=== PATIENT | male | born 1970 | race Caucasian/White ===

== ENCOUNTER 2019-07-29 16:53 | Inpatient (IN) | payer OTHER ==
[2019-07-29 21:22] VITALS: BMI 21.5
--- NOTE | 2019-07-29 22:25 | HP ---
"CIWA Score Nausea/Vomitin Muscle Tremors: 6 (mod Tremors hands and body) Anxiety: 1-Mildly Anxious Agitation: 1-Slight > Activity Paroxysmal Sweats: 3 (Increased facial moisture) Orientation: 0-Oriented Tacttile Disturbances: 0-None Auditory Disturbances: 0-None Visual Disturbances: 0-None Headache: 2-Mild CIWA-Ar Total Score: 16 - Admission Criteria OASAS Guidelines: Admission for Medically Managed Detox: Requires at least one of the followin. CIWA greater than 12 2. Seizures within the past 24 hours 3. Delirium tremens within the past 24 hours 4. Hallucinations within the past 24 hours 5. Acute intervention needed for co occurring medical disorder 6. Acute intervention needed for co occurring psychiatric disorder 7. Severe withdrawal that cannot be handled at a lower level of care (continued vomiting, continued diarrhea, abnormal vital signs) requiring intravenous medication and/or fluids 8. Patient presents the following: CIWA greater than 12 Admission Criteria Met: Admission criteria met Admission ROS [facility] Chief Complaint: Here for detox Allergies/Adverse Reactions: Allergies Allergy/AdvReac Type Severity Reaction Status Date / Time sulfamethoxazole Allergy Mild Hives Verified 07/29/19 21:09 [From Bactrim] zidovudine Allergy Mild Hives Verified 07/29/19 21:06 efavirenz [From Atripla] Allergy Hives Verified 07/29/19 21:11 emtricitabine [From Atripla] Allergy Hives Verified 07/29/19 21:11 tenofovir [From Atripla] Allergy Hives Verified 07/29/19 21:11 History of Present Illness: 49 yo presents w/ alcohol withdrawal symptoms seeking detox. Utox: + HEMA/FEN/MOP/MTD WALE: 0.0 Alcohol use began at age 12. Drinks 2 gallons/day. Last drink this am. Heroin use began at age 14. Uses approx 10 bags IV daily, despite being on MMTP. Currently on Jim Mancera MMTP x 3-4 months. Methadone dose is 70 mg PO Daily. LDM today. Cocaine use began at age 14. Currently injects. Nicotine use began at age 11. Smokes 1-2 pks/day. Hx: OD - last 3 OD's in 2018 Denies seizures or blackouts. PMHx: HIV +; Cough x 2 days MHHx: Denies depression at this time. Denies thoughts of harming self or others. SHx: Domiciled. Unemployed. Denies legal problems. Search Terms: Last Arthur, 1970 Search Date: 07/29/2019 10:12:54 PM The Drug Utilization Report below displays all of the controlled substance prescriptions, if any, that your patient has filled in the last twelve months. The information displayed on this report is compiled from pharmacy submissions to the Department, and accurately reflects the information as submitted by the pharmacies. This report was requested by: Bethany Catherine | Reference #: [id number] There are no results for the search terms that you entered. Exam Limitations: No Limitations - Ebola screening Have you traveled outside of the country in the last 21 days: No (N) Have you had contact with anyone from an Ebola affected area: No Have you been sick,other than usual withdrawal symptoms: Yes (Cough x 2 days ) Do you have a fever: No - Review of Systems Constitutional: Chills, Changes in sleep (Difficulty staying asleep), Unintentional Wgt. Loss EENT: reports: Blurred Vision, Nose Congestion Respiratory: reports: Cough (x 2 days) Cardiac: reports: No Symptoms Reported GI: reports: Blood Streaked Bowels (Occ - has hemorrhoids), Nausea : reports: Frequency (2-3 x/night urination. No blood/no burning) Musculoskeletal: reports: No Symptoms Reported Integumentary: reports: No Symptoms Reported Neuro: reports: Headache (Frontal headache - mild), Tremors Endocrine: reports: No Symptoms Reported Hematology: reports: Anemia (HIV+) Psychiatric: reports: Orientated x3, Agitated, Anxious Patient History - PPD History Previous Implant?: Yes Documented Results: Negative w/o proof Implanted On Prior [facility] Admission?: No PPD to be Administered?: Yes - Smoking Cessation Smoking history: Current every day smoker Have you smoked in the past 12 months: Yes Aproximately how many cigarettes per day: 30 Hx Chewing Tobacco Use: No Initiated information on smoking cessation: Yes 'Breaking Loose' booklet given: 07/29/19 - Substance & Tx. History Hx Alcohol Use: Yes Hx Substance Use: Yes Substance Use Type: Alcohol, Cocaine, Heroin, Opiates Hx Substance Use Treatment: Yes (detox; Current MMTP) - Substances abused Heroin Substance route: Injection Frequency: Daily Amount used: 12 bags Age of first use: 14 Date of last use: 07/28/19 Alcohol Substance route: Oral Frequency: Daily Amount used: 2 liters of vodka Age of first use: 12 Date of last use: 07/29/19 Cocaine Substance route: Injection Frequency: 3-6 times per week Amount used: $300 Age of first use: 14 Date of last use: 07/29/19 Admission Physical Exam [facility] - Vital Signs Vital Signs: Vital Signs - 24 hr 07/29/19 21:14 Temperature 98.5 F Pulse Rate 62 Respiratory 16 Rate Blood Pressure 103/63 - Physical General Appearance: Yes: Moderate Distress, Thin, Tremorous, Sweating ( Increased facial moisture), Anxious HEENTM: Yes: EOMI, Hearing grossly Normal, Normal Voice, JENNIFER, Pharynx Normal, Nasal Congestion Respiratory: Yes: Lungs Clear (Pulse Ox = 97 %), Wheezing (Expiratory. 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, Fully Oriented, Alert, Motor Strength 5/5, Normal Response Integumentary: Yes: Normal Color, Warm, Diaphoresis (Increased facial moisture) , Track Mcconnell (Old and new track mcconnell (R) arm) Lymphatic: Yes: Within Normal Limits - Diagnostic (1) Alcohol dependence with withdrawal, uncomplicated Current Visit: Yes Status: Acute (2) Opioid use disorder Current Visit: Yes Status: Chronic Comment: Continues to use despite being on methadone maintenance (3) Opioid dependence on agonist therapy Current Visit: Yes Status: Chronic (4) History of HIV infection Current Visit: Yes Status: Chronic Comment: Not on meds (5) Track mcconnell due to intravenous drug abuse Current Visit: Yes Status: Chronic (6) Cough Current Visit: Yes Status: Acute Comment: Quiet, non-productive (7) Wheeze Current Visit: Yes Status: Acute Comment: Expiratory w/ dyspnea Cleared for Admission [facility] - Detox or Rehab [facility] Level of Care: Medically Managed Detox Regimen/Protocol: Valium Claeared for Rehab Admission: No Breathalyzer - Breathalyzer Breathalyzer: 0 Urine Drug Screen - Test Device Lot number: [id number] Expiration date: 04/08/21 - Control Is test valid?: Yes - Results Drug screen NEGATIVE: No Urine drug screen results: HEMA-Cocaine, FEN-Fentanyl, MOP-Opiates, MTD-Methadone Inpatient Rehab Admission - Rehab Decision to Admit Inpatient rehab admission?: No"
[2019-07-29] MEDS ORDERED: MAGNESIUM CITRATE 300 ML BOTTLE PO PRN (22:59)
[2019-07-29] MEDS ORDERED: MAG HYDROX/AL HYDROX/SIMETH 30 ML UNIT-DOSE CUP PO PRN (22:59)
[2019-07-29] MEDS ORDERED: IBUPROFEN 400 MG TABLET (FP) PO PRN (22:59)
[2019-07-29] MEDS ORDERED: BISMUTH SUBSALICYLATE 524 MG/30 ML UD PO PRN (22:59)
[2019-07-29] MEDS ORDERED: MENTHOL/PHENOL 1 EACH UD MM PRN (22:59)
[2019-07-29] MEDS ORDERED: diazePAM 5 MG TABLET PO PRN (22:59)
[2019-07-29] MEDS ORDERED: ACETAMINOPHEN 325 MG TABLET (FP) PO PRN ×2 (22:59)
[2019-07-29] MEDS ORDERED: MAGNESIUM HYDROX 2400MG/30ML ORAL SUSPENSION 30 ML CUP PO PRN (22:59)
[2019-07-29] MEDS ORDERED: ALBUTEROL SO4 0.083% IH SOL 2.5 MG/3 ML VIAL.NEB. NEB ONE (23:30)
[2019-07-29] MEDS ORDERED: diazePAM 5 MG TABLET PO ONE (23:45)
[2019-07-30] MEDS: guaiFENesin 200 MG/10 ML 10 ML UNIT-DOSE CUPS PO SCH ×5 (00:57→22:23)
[2019-07-30] MEDS ORDERED: ALBUTEROL SO4 0.083% IH SOL 2.5 MG/3 ML VIAL.NEB. NEB ONE (06:00)
[2019-07-30] MEDS ORDERED: diazePAM 5 MG TABLET PO SCH (06:00)
[2019-07-30] MEDS ORDERED: METHADONE HCL 10 MG TABLET PO ONE (10:05)
[2019-07-30 10:15] LABS: HEMATOCRIT 48.3 % (35.4-49); HEMOGLOBIN 15.3 GM/dL (11.7-16.9); MCH 25.6 pg (25.7-33.7); MCHC 31.6 g/dl (32.0-35.9); MEAN CELL VOLUME 80.8 fl (80-96); MEAN PLT VOLUME 8.6 fl (7.5-11.1); PLATELET COUNT 247 K/MM3 (134-434); RBC 5.97 M/mm3 (4.00-5.60); RDW 14.7 % (11.9-15.9); WHITE BLOOD COUNT 5.3 K/mm3 (4.0-10.0)
[2019-07-30 10:24] LABS: ALBUMIN 3.6 g/dl (3.4-5.0); BILIRUBIN,TOTAL 0.4 mg/dL (0.2-1); BLOOD UREA NITROGEN 16.8 mg/dL (7-18); CALCIUM 8.9 mg/dL (8.5-10.1); CREATININE 1.1 mg/dL (0.55-1.3); TOT PROT 7.3 g/dl (6.4-8.2)
[2019-07-30] MEDS ORDERED: METHADONE 40 MG, METHADONE 30 MG PO ONE (10:25)
--- NOTE | 2019-07-30 10:29 | PN ---
[facility] CIWA - CIWA Score Nausea/Vomitin-Mild Nausea/No Vomiting Muscle Tremors: 3 Anxiety: 3 Agitation: 2 Paroxysmal Sweats: 2 Orientation: 0-Oriented Tacttile Disturbances: 0-None Auditory Disturbances: 0-None Visual Disturbances: 0-None Headache: 0-None Present CIWA-Ar Total Score: 11 S Progress Note (SOAP) Subjective: 49 years old male admitted on 07/29/19 for alcohol withdrawal sx management treated with valium detox regiment received methadone 70 mg po today feeling better ambulating on hallway Objective: 07/30/19 10:36 Vital Signs Temperature 97.9 F 07/30/19 09:06 Pulse Rate 71 07/30/19 09:06 Respiratory Rate 18 07/30/19 09:06 Blood Pressure 98/59 L 07/30/19 09:06 O2 Sat by Pulse Oximetry (%) Laboratory Last Values WBC 5.3 K/mm3 (4.0-10.0) 07/30/19 08:15 RBC 5.97 M/mm3 (4.00-5.60) H 07/30/19 08:15 Hgb 15.3 GM/dL (11.7-16.9) 07/30/19 08:15 Hct 48.3 % (35.4-49) 07/30/19 08:15 MCV 80.8 fl (80-96) 07/30/19 08:15 MCH 25.6 pg (25.7-33.7) L 07/30/19 08:15 MCHC 31.6 g/dl (32.0-35.9) L 07/30/19 08:15 RDW 14.7 % (11.9-15.9) 07/30/19 08:15 Plt Count 247 K/MM3 (134-434) 07/30/19 08:15 MPV 8.6 fl (7.5-11.1) 07/30/19 08:15 Sodium 139 mmol/L (136-145) 07/30/19 08:15 Potassium 4.0 mmol/L (3.5-5.1) 07/30/19 08:15 Chloride 103 mmol/L (98-107) 07/30/19 08:15 Carbon Dioxide 31 mmol/L (21-32) 07/30/19 08:15 Anion Gap 5 MMOL/L (8-16) L 07/30/19 08:15 BUN 16.8 mg/dL (7-18) 07/30/19 08:15 Creatinine 1.1 mg/dL (0.55-1.3) 07/30/19 08:15 Est GFR (CKD-EPI)AfAm 90.88 07/30/19 08:15 Est GFR (CKD-EPI)NonAf 78.41 07/30/19 08:15 Random Glucose 119 mg/dL (74-106) H 07/30/19 08:15 Calcium 8.9 mg/dL (8.5-10.1) 07/30/19 08:15 Total Bilirubin 0.4 mg/dL (0.2-1) 07/30/19 08:15 AST 62 U/L (15-37) H 07/30/19 08:15 ALT 94 U/L (13-61) H 07/30/19 08:15 Alkaline Phosphatase 95 U/L (45-117) 07/30/19 08:15 Total Protein 7.3 g/dl (6.4-8.2) 07/30/19 08:15 Albumin 3.6 g/dl (3.4-5.0) 07/30/19 08:15 lab noted Assessment: 07/30/19 10:37 alcohol withdrawal sx Plan: continue valium detox regimen
[2019-07-30] MEDS ORDERED: METHADONE HCL 40 MG DISPERSABLE TABLET ONE (10:31)
[2019-07-30] MEDS ORDERED: METHADONE HCL 10 MG TABLET ONE (10:31)
[2019-07-30] MEDS: PRENATAL VITAMINS W/ FOLIC ACID TABLET (FP) PO SCH (10:32)
[2019-07-30] MEDS: NICOTINE 21 MG/24 HOURS TOPICAL PATCH TD SCH (10:34)
--- NOTE | 2019-07-30 10:37 | EKG ---
Test Reason : Blood Pressure : / mmHG Vent. Rate : 059 BPM Atrial Rate : 059 BPM P-R Int : 140 ms QRS Dur : 104 ms QT Int : 422 ms P-R-T Axes : 076 051 047 degrees QTc Int : 417 ms SINUS BRADYCARDIA OTHERWISE NORMAL ECG NO PREVIOUS ECGS AVAILABLE Confirmed by MOHSEN SAMAYOA, HONORIO ([id number]) on 07/30/2019 10:36:55 AM Referred By: Confirmed By:HONORIO CONNOLLY MD
[2019-07-30] MEDS ORDERED: LORazepam 0.5 MG TABLET PO PRN (13:26)
[2019-07-30] MEDS: LORazepam 0.5 MG TABLET PO SCH ×2 (14:18→22:23)
[2019-07-30] MEDS: NICOTINE POLACRILEX 2 MG GUM BUC PRN ×2 (14:58→22:34)
[2019-07-30 21:20] LABS: PH,URINE 5.5 (5.0-8.0); URINE APPEARANCE CLEAR; URINE BILIRUBIN NEGATIVE (NEGATIVE); URINE COLOR YELLOW; URINE GLUCOSE (UA) NEGATIVE (NEGATIVE); URINE KETONE NEGATIVE (NEGATIVE); URINE LEUK ESTERASE NEGATIVE (NEGATIVE); URINE NITRITE NEGATIVE (NEGATIVE); URINE PROTEIN NEGATIVE (NEGATIVE); URINE UROBILINOGEN 0.2 mg/dL (0.2-1.0)
[2019-07-30] MEDS: THIAMINE HCL 100 MG TABLET (FP) PO SCH (22:23)
[2019-07-30] MEDS: MELATONIN 5 MG TABLETS PO PRN (22:24)
[2019-07-31] MEDS: LORazepam 0.5 MG TABLET PO PRN ×2 (01:48→10:18)
[2019-07-31] MEDS ORDERED: METHADONE HCL 10 MG TABLET ONE (04:25)
[2019-07-31] MEDS ORDERED: METHADONE HCL 40 MG DISPERSABLE TABLET ONE (04:25)
[2019-07-31] MEDS: guaiFENesin 200 MG/10 ML 10 ML UNIT-DOSE CUPS PO SCH ×5 (05:24→22:30)
[2019-07-31] MEDS: METHADONE 40 MG, METHADONE 30 MG PO SCH (05:24)
[2019-07-31] MEDS: LORazepam 0.5 MG TABLET PO SCH ×2 (05:27→17:14)
[2019-07-31] MEDS ORDERED: METHADONE HCL 10 MG TABLET PO SCH (06:00)
[2019-07-31] MEDS ORDERED: diazePAM 5 MG TABLET PO SCH (06:00)
--- NOTE | 2019-07-31 09:53 | PN ---
S CIWA - CIWA Score Nausea/Vomitin-No Nausea/No Vomiting Muscle Tremors: 2 Anxiety: 2 Agitation: 2 Paroxysmal Sweats: No Perspiration Orientation: 0-Oriented Tacttile Disturbances: 0-None Auditory Disturbances: 0-None Visual Disturbances: 0-None Headache: 0-None Present CIWA-Ar Total Score: 6 BHS Progress Note (SOAP) Subjective: 49 years old male admitted on 07/29/19 for alcohol withdrawal sx management treated with ativan detox regimen feeling better discuss aftercare with staff ambulating on hallway social with peers Objective: 07/31/19 09:58 Vital Signs Temperature 97.3 F L 07/31/19 09:12 Pulse Rate 63 07/31/19 09:12 Respiratory Rate 16 07/31/19 09:12 Blood Pressure 90/55 L 07/31/19 09:12 O2 Sat by Pulse Oximetry (%) Laboratory Last Values WBC 5.3 K/mm3 (4.0-10.0) 07/30/19 08:15 RBC 5.97 M/mm3 (4.00-5.60) H 07/30/19 08:15 Hgb 15.3 GM/dL (11.7-16.9) 07/30/19 08:15 Hct 48.3 % (35.4-49) 07/30/19 08:15 MCV 80.8 fl (80-96) 07/30/19 08:15 MCH 25.6 pg (25.7-33.7) L 07/30/19 08:15 MCHC 31.6 g/dl (32.0-35.9) L 07/30/19 08:15 RDW 14.7 % (11.9-15.9) 07/30/19 08:15 Plt Count 247 K/MM3 (134-434) 07/30/19 08:15 MPV 8.6 fl (7.5-11.1) 07/30/19 08:15 Sodium 139 mmol/L (136-145) 07/30/19 08:15 Potassium 4.0 mmol/L (3.5-5.1) 07/30/19 08:15 Chloride 103 mmol/L (98-107) 07/30/19 08:15 Carbon Dioxide 31 mmol/L (21-32) 07/30/19 08:15 Anion Gap 5 MMOL/L (8-16) L 07/30/19 08:15 BUN 16.8 mg/dL (7-18) 07/30/19 08:15 Creatinine 1.1 mg/dL (0.55-1.3) 07/30/19 08:15 Est GFR (CKD-EPI)AfAm 90.88 07/30/19 08:15 Est GFR (CKD-EPI)NonAf 78.41 07/30/19 08:15 Random Glucose 119 mg/dL (74-106) H 07/30/19 08:15 Calcium 8.9 mg/dL (8.5-10.1) 07/30/19 08:15 Total Bilirubin 0.4 mg/dL (0.2-1) 07/30/19 08:15 AST 62 U/L (15-37) H 07/30/19 08:15 ALT 94 U/L (13-61) H 07/30/19 08:15 Alkaline Phosphatase 95 U/L (45-117) 07/30/19 08:15 Total Protein 7.3 g/dl (6.4-8.2) 07/30/19 08:15 Albumin 3.6 g/dl (3.4-5.0) 07/30/19 08:15 Urine Color Yellow 07/30/19 21:10 Urine Appearance Clear 07/30/19 21:10 Urine pH 5.5 (5.0-8.0) 07/30/19 21:10 Ur Specific [place] 1.016 (1.010-1.035) 07/30/19 21:10 Urine Protein Negative (NEGATIVE) 07/30/19 21:10 Urine Glucose (UA) Negative (NEGATIVE) 07/30/19 21:10 Urine Ketones Negative (NEGATIVE) 07/30/19 21:10 Urine Blood Negative (NEGATIVE) 07/30/19 21:10 Urine Nitrite Negative (NEGATIVE) 07/30/19 21:10 Urine Bilirubin Negative (NEGATIVE) 07/30/19 21:10 Urine Urobilinogen 0.2 mg/dL (0.2-1.0) 07/30/19 21:10 Ur Leukocyte Esterase Negative (NEGATIVE) 07/30/19 21:10 RPR Titer Nonreactive (NONREACTIVE) 07/30/19 08:15 lab noted Assessment: 07/31/19 09:59 alcohol withdrawal sx Plan: continue detox regimen
[2019-07-31] MEDS: PRENATAL VITAMINS W/ FOLIC ACID TABLET (FP) PO SCH (10:17)
[2019-07-31] MEDS: NICOTINE 21 MG/24 HOURS TOPICAL PATCH TD SCH (10:19)
[2019-07-31] MEDS: NICOTINE POLACRILEX 2 MG GUM BUC PRN (17:16)
[2019-07-31] MEDS ORDERED: ALBUTEROL SO4 0.083% IH SOL 2.5 MG/3 ML VIAL.NEB. NEB PRN (19:11)
[2019-07-31] MEDS: MELATONIN 5 MG TABLETS PO PRN (22:30)
[2019-07-31] MEDS: THIAMINE HCL 100 MG TABLET (FP) PO SCH (22:30)
[2019-08-01] MEDS ORDERED: METHADONE HCL 10 MG TABLET ONE (04:40)
[2019-08-01] MEDS ORDERED: METHADONE HCL 40 MG DISPERSABLE TABLET ONE (04:41)
[2019-08-01] MEDS ORDERED: LORazepam 0.5 MG TABLET PO ONE (05:00)
[2019-08-01] MEDS ORDERED: diazePAM 5 MG TABLET PO ONE (06:00)
[2019-08-01] MEDS: METHADONE 40 MG, METHADONE 30 MG PO SCH (06:11)
[2019-08-01] MEDS: guaiFENesin 200 MG/10 ML 10 ML UNIT-DOSE CUPS PO SCH ×2 (06:16→11:43)
[2019-08-01 09:28] VITALS: BP 99/50; PULSE 73; TEMP 98.5
[2019-08-01] MEDS: PRENATAL VITAMINS W/ FOLIC ACID TABLET (FP) PO SCH (10:06)
[2019-08-01] MEDS: NICOTINE 21 MG/24 HOURS TOPICAL PATCH TD SCH (10:07)
--- NOTE | 2019-08-01 10:57 | DS ---
[facility] Detox Discharge Summary Admission Date: 07/29/19 Discharge Date: 08/01/19 - History Present History: Alcohol Dependence, MMTP Additional Comments: follow up with rehab as arrangement Pertinent Past History: mmtp - Physical Exam Results Vital Signs: Vital Signs Temperature 98.5 F 08/01/19 09:28 Pulse Rate 73 08/01/19 09:28 Respiratory Rate 18 08/01/19 09:28 Blood Pressure 99/50 L 08/01/19 09:28 O2 Sat by Pulse Oximetry (%) Laboratory Last Values WBC 5.3 K/mm3 (4.0-10.0) 07/30/19 08:15 RBC 5.97 M/mm3 (4.00-5.60) H 07/30/19 08:15 Hgb 15.3 GM/dL (11.7-16.9) 07/30/19 08:15 Hct 48.3 % (35.4-49) 07/30/19 08:15 MCV 80.8 fl (80-96) 07/30/19 08:15 MCH 25.6 pg (25.7-33.7) L 07/30/19 08:15 MCHC 31.6 g/dl (32.0-35.9) L 07/30/19 08:15 RDW 14.7 % (11.9-15.9) 07/30/19 08:15 Plt Count 247 K/MM3 (134-434) 07/30/19 08:15 MPV 8.6 fl (7.5-11.1) 07/30/19 08:15 Sodium 139 mmol/L (136-145) 07/30/19 08:15 Potassium 4.0 mmol/L (3.5-5.1) 07/30/19 08:15 Chloride 103 mmol/L (98-107) 07/30/19 08:15 Carbon Dioxide 31 mmol/L (21-32) 07/30/19 08:15 Anion Gap 5 MMOL/L (8-16) L 07/30/19 08:15 BUN 16.8 mg/dL (7-18) 07/30/19 08:15 Creatinine 1.1 mg/dL (0.55-1.3) 07/30/19 08:15 Est GFR (CKD-EPI)AfAm 90.88 07/30/19 08:15 Est GFR (CKD-EPI)NonAf 78.41 07/30/19 08:15 Random Glucose 119 mg/dL (74-106) H 07/30/19 08:15 Calcium 8.9 mg/dL (8.5-10.1) 07/30/19 08:15 Total Bilirubin 0.4 mg/dL (0.2-1) 07/30/19 08:15 AST 62 U/L (15-37) H 07/30/19 08:15 ALT 94 U/L (13-61) H 07/30/19 08:15 Alkaline Phosphatase 95 U/L (45-117) 07/30/19 08:15 Total Protein 7.3 g/dl (6.4-8.2) 07/30/19 08:15 Albumin 3.6 g/dl (3.4-5.0) 07/30/19 08:15 Urine Color Yellow 07/30/19 21:10 Urine Appearance Clear 07/30/19 21:10 Urine pH 5.5 (5.0-8.0) 07/30/19 21:10 Ur Specific [place] 1.016 (1.010-1.035) 07/30/19 21:10 Urine Protein Negative (NEGATIVE) 07/30/19 21:10 Urine Glucose (UA) Negative (NEGATIVE) 07/30/19 21:10 Urine Ketones Negative (NEGATIVE) 07/30/19 21:10 Urine Blood Negative (NEGATIVE) 07/30/19 21:10 Urine Nitrite Negative (NEGATIVE) 07/30/19 21:10 Urine Bilirubin Negative (NEGATIVE) 07/30/19 21:10 Urine Urobilinogen 0.2 mg/dL (0.2-1.0) 07/30/19 21:10 Ur Leukocyte Esterase Negative (NEGATIVE) 07/30/19 21:10 RPR Titer Nonreactive (NONREACTIVE) 07/30/19 08:15 Pertinent Admission Physical Exam Findings: withdrawal signs and symptom - Treatment Hospital Course: Detox Protocol Followed, Detoxed Safely, Responded well, Discharged Condition Good, Rehab Referral Accepted Patient has Accepted [facility] Referral [facility] - Medication Discharge Medications: Ambulatory Orders NK [No Known Home Medication] 07/29/19 - Diagnosis (1) Alcohol dependence with withdrawal, uncomplicated Current Visit: Yes Status: Acute (2) Opioid dependence on agonist therapy Current Visit: Yes Status: Chronic (3) Track montez due to intravenous drug abuse Current Visit: Yes Status: Chronic (4) History of HIV infection Current Visit: Yes Status: Chronic - AMA Did Patient Leave Against Medical Advice: No
[2019-08-01] MEDS: NICOTINE POLACRILEX 2 MG GUM BUC PRN (12:34)
== END 2019-08-01 12:58 | disposition other institution (70) | DRG 773 ==
LOC: YASAS 16:53 → Y3N 23:41
PROVIDERS: ADMIT Allergy & Immunology; ATTEND Allergy & Immunology
PROC: HZ2ZZZZ Detoxification Services for Substance Abuse Treatment (ICD-10-PCS; principal; 2019-07-29)
DX: F10.230 Alcohol dependence with withdrawal, uncomplicated (principal); F11.20 Opioid dependence, uncomplicated; F14.20 Cocaine dependence, uncomplicated; F17.210 Nicotine dependence, cigarettes, uncomplicated; Z21 Asymptomatic human immunodeficiency virus [HIV] infection status; R05 Cough; R06.2 Wheezing; Z88.2 Allergy status to sulfonamides; Z88.8 Allergy status to other drugs, medicaments and biological substances
CPT/HCPCS: 36415; 80053; 81003; 85027; 86593; 93005; 93010; 94640

== ENCOUNTER 2019-08-01 13:06 | Inpatient (IN) | payer OTHER ==
[2019-08-01] MEDS ORDERED: MAG HYDROX/AL HYDROX/SIMETH 30 ML UNIT-DOSE CUP PO PRN (16:02)
[2019-08-01] MEDS ORDERED: MAGNESIUM CITRATE 300 ML BOTTLE PO PRN (16:02)
[2019-08-01] MEDS ORDERED: ACETAMINOPHEN 325 MG TABLET (FP) PO PRN (16:02)
[2019-08-01] MEDS ORDERED: P-EPHED 60MG/TRIPROLIDI 2.5MG TABLET PO PRN (16:02)
[2019-08-01] MEDS ORDERED: LOPERAMIDE HCL 2 MG CAPSULE PO PRN (16:02)
[2019-08-01] MEDS ORDERED: MAGNESIUM HYDROX 2400MG/30ML ORAL SUSPENSION 30 ML CUP PO PRN (16:02)
[2019-08-01] MEDS ORDERED: MENTHOL/PHENOL 1 EACH UD MM PRN (16:02)
--- NOTE | 2019-08-01 16:02 | HP ---
[facility] Rehab Assess/Revision - Admission History Admitted to Rehab from: [facility] Date of Admission to Rehab: 08/01/19 - Vital signs Vital Signs: Vital Signs Period Temp Pulse Resp BP Sys/Santiago Pulse Ox Last 24 Hr 97.9 F 72 18 105/66 - Findings Detox History & Physical reviewed: Yes Concur with findings: Yes Comments/Additional Findings: for rehab as protocol Inpatient Rehab Admission - Rehab Decision to Admit Inpatient rehab admission?: Yes - Initial Determination Are CD services needed?: Yes Free of communicable disease: Yes Not in need of hospitalization: Yes - Rehab Admission Criteria Previous failed treatment: Yes Poor recovery environment: Yes Comorbidities: Yes Lacks judgement: No Patient is meeting Inpatient Rehab admission criteria:: Yes
[2019-08-01] MEDS ORDERED: NICOTINE POLACRILEX 2 MG GUM BC PRN (16:05)
--- NOTE | 2019-08-01 16:21 | PN ---
S Progress Note Note: Pt is a 49 y/o male admitted to rehab from [address] [place] [address] this afternoon. Vital Signs - 24 hr 08/01/19 13:21 Temperature 97.9 F Pulse Rate 72 Respiratory 18 Rate Blood Pressure 105/66 Alert o x 3 nad oob ambulating with steady gait. A/P s/p detox Maintain safety Continue rehab.
[2019-08-01] MEDS: THIAMINE HCL 100 MG TABLET (FP) PO SCH (21:16)
[2019-08-01] MEDS: MELATONIN 5 MG TABLETS PO PRN (22:30)
[2019-08-02] MEDS ORDERED: METHADONE HCL 40 MG DISPERSABLE TABLET PO SCH (06:00)
[2019-08-02] MEDS: METHADONE 40 MG, METHADONE 30 MG PO SCH (06:25)
[2019-08-02] MEDS ORDERED: METHADONE HCL 40 MG DISPERSABLE TABLET ONE (06:25)
[2019-08-02] MEDS ORDERED: METHADONE HCL 10 MG TABLET ONE (06:25)
[2019-08-02] MEDS: PRENATAL VITAMINS W/ FOLIC ACID TABLET (FP) PO SCH (09:41)
[2019-08-02] MEDS: NICOTINE 21 MG/24 HOURS TOPICAL PATCH TD SCH (09:42)
[2019-08-02] MEDS: guaiFENesin 200 MG/10 ML 10 ML UNIT-DOSE CUPS PO PRN (19:22)
[2019-08-02] MEDS: MELATONIN 5 MG TABLETS PO PRN (21:19)
[2019-08-02] MEDS: THIAMINE HCL 100 MG TABLET (FP) PO SCH (21:19)
[2019-08-03] MEDS ORDERED: METHADONE HCL 40 MG DISPERSABLE TABLET ONE (06:40)
[2019-08-03] MEDS ORDERED: METHADONE HCL 10 MG TABLET ONE (06:40)
[2019-08-03] MEDS: METHADONE 40 MG, METHADONE 30 MG PO SCH (07:08)
[2019-08-03] MEDS: NICOTINE 21 MG/24 HOURS TOPICAL PATCH TD SCH (10:24)
[2019-08-03] MEDS: PRENATAL VITAMINS W/ FOLIC ACID TABLET (FP) PO SCH (10:24)
[2019-08-03] MEDS: THIAMINE HCL 100 MG TABLET (FP) PO SCH (21:16)
[2019-08-04] MEDS ORDERED: METHADONE HCL 10 MG TABLET ONE (05:58)
[2019-08-04] MEDS ORDERED: METHADONE HCL 40 MG DISPERSABLE TABLET ONE (05:59)
[2019-08-04] MEDS ORDERED: METHADONE HCL 10 MG TABLET PO SCH (06:00)
[2019-08-04] MEDS: METHADONE 40 MG, METHADONE 30 MG PO SCH (06:41)
[2019-08-04] MEDS ORDERED: ALBUTEROL SO4 0.083% IH SOL 2.5 MG/3 ML VIAL.NEB. NEB PRN (09:03)
[2019-08-04] MEDS: PRENATAL VITAMINS W/ FOLIC ACID TABLET (FP) PO SCH (10:25)
[2019-08-04] MEDS: hydrOXYzine PAMOATE 50 MG CAPSULE (FP) PO PRN (10:25)
[2019-08-04] MEDS: NICOTINE 21 MG/24 HOURS TOPICAL PATCH TD SCH (10:26)
[2019-08-04] MEDS: THIAMINE HCL 100 MG TABLET (FP) PO SCH (21:21)
[2019-08-05] MEDS: hydrOXYzine PAMOATE 50 MG CAPSULE (FP) PO PRN (07:35)
[2019-08-05] MEDS ORDERED: METHADONE HCL 10 MG TABLET ONE (10:25)
[2019-08-05] MEDS ORDERED: METHADONE HCL 40 MG DISPERSABLE TABLET ONE (10:26)
[2019-08-05] MEDS: PRENATAL VITAMINS W/ FOLIC ACID TABLET (FP) PO SCH (11:18)
[2019-08-05] MEDS: METHADONE 40 MG, METHADONE 30 MG PO SCH (11:18)
[2019-08-05] MEDS: ALBUTEROL SO4 8 GM HFA INHALER IH PRN ×2 (11:19→22:12)
[2019-08-05] MEDS: NICOTINE 21 MG/24 HOURS TOPICAL PATCH TD SCH (11:19)
[2019-08-05] MEDS: THIAMINE HCL 100 MG TABLET (FP) PO SCH (22:05)
[2019-08-05] MEDS: guaiFENesin 200 MG/10 ML 10 ML UNIT-DOSE CUPS PO PRN (22:11)
[2019-08-06] MEDS ORDERED: METHADONE HCL 10 MG TABLET ONE (09:13)
[2019-08-06] MEDS ORDERED: METHADONE HCL 40 MG DISPERSABLE TABLET ONE (09:13)
[2019-08-06] MEDS: NICOTINE 21 MG/24 HOURS TOPICAL PATCH TD SCH (10:25)
[2019-08-06] MEDS: METHADONE 40 MG, METHADONE 30 MG PO SCH (10:27)
[2019-08-06] MEDS: PRENATAL VITAMINS W/ FOLIC ACID TABLET (FP) PO SCH (10:28)
[2019-08-06] MEDS: ALBUTEROL SO4 8 GM HFA INHALER IH PRN ×2 (10:29→21:41)
[2019-08-06] MEDS: guaiFENesin 200 MG/10 ML 10 ML UNIT-DOSE CUPS PO PRN (13:43)
[2019-08-06] MEDS: THIAMINE HCL 100 MG TABLET (FP) PO SCH (21:40)
[2019-08-06] MEDS: IBUPROFEN 400 MG TABLET (FP) PO PRN (22:03)
[2019-08-07] MEDS ORDERED: METHADONE HCL 40 MG DISPERSABLE TABLET ONE (06:01)
[2019-08-07] MEDS ORDERED: METHADONE HCL 10 MG TABLET ONE (06:01)
[2019-08-07] MEDS: METHADONE 40 MG, METHADONE 30 MG PO SCH (06:46)
[2019-08-07] MEDS: NICOTINE 21 MG/24 HOURS TOPICAL PATCH TD SCH (10:23)
[2019-08-07] MEDS: PRENATAL VITAMINS W/ FOLIC ACID TABLET (FP) PO SCH (10:23)
[2019-08-07] MEDS: THIAMINE HCL 100 MG TABLET (FP) PO SCH (21:47)
[2019-08-08] MEDS ORDERED: METHADONE HCL 40 MG DISPERSABLE TABLET ONE (07:29)
[2019-08-08] MEDS: METHADONE 40 MG, METHADONE 30 MG PO SCH (07:29)
[2019-08-08] MEDS ORDERED: METHADONE HCL 10 MG TABLET ONE (07:29)
[2019-08-08] MEDS: NICOTINE 21 MG/24 HOURS TOPICAL PATCH TD SCH (10:17)
[2019-08-08] MEDS: PRENATAL VITAMINS W/ FOLIC ACID TABLET (FP) PO SCH (10:18)
[2019-08-08] MEDS: ALBUTEROL SO4 8 GM HFA INHALER IH PRN ×2 (10:18→21:14)
--- NOTE | 2019-08-08 12:21 | PN ---
[facility] Progress Note Note: patient requested his HIV medications. He stated that his pharmacy was [facility] pharmacy. I called [facility] to confirm his HIV regimen. The pharmacist informed me that his last filled prescription at [facility] pharmacy was 07/02 and the patient came in on 08/02 to fill his prescription of Triumeq, but the pharmacy could not fill the prescription at that time because the insurance stated it was already filled at another pharmacy. The pharmacist was not given the name of the other pharmacy because it is confidential and therefore, I am unable to obtain it unless the patient is able to provide it. The pharmacist also stated that there was now an on-going investigation of this issue: the patient going to two different pharmacies with prescriptions for Triumeq. At the present time , I am unable to prescribe the triumeq for the patient because I cannot confirm if he is taking it or diverting the medication. Prescribing the medication at this time may inadvertently cause viral resistance and would be detrimental to the patient. The patient is advised to return to his clinic for a complete evaluation of his viral load status. In addition, it is advisable not to transmit a prescription for triumeq upon discharge because the patient will not be able to fill it. If the patient has the triumeq at home or in his possessions at security will allow the patient to get the medication and have it confirmed by the pharmacy.
[2019-08-08] MEDS ORDERED: ALBUTEROL SO4 0.083% IH SOL 2.5 MG/3 ML VIAL.NEB. NEB PRN (12:24)
[2019-08-08] MEDS: THIAMINE HCL 100 MG TABLET (FP) PO SCH (21:14)
[2019-08-08] MEDS: IBUPROFEN 400 MG TABLET (FP) PO PRN (22:01)
[2019-08-09] MEDS ORDERED: METHADONE HCL 40 MG DISPERSABLE TABLET ONE (06:01)
[2019-08-09] MEDS ORDERED: METHADONE HCL 10 MG TABLET ONE (06:01)
[2019-08-09] MEDS: METHADONE 40 MG, METHADONE 30 MG PO SCH (06:55)
[2019-08-09] MEDS: NICOTINE 21 MG/24 HOURS TOPICAL PATCH TD SCH (09:53)
[2019-08-09] MEDS: PRENATAL VITAMINS W/ FOLIC ACID TABLET (FP) PO SCH (09:54)
[2019-08-09] MEDS: hydrOXYzine PAMOATE 50 MG CAPSULE (FP) PO PRN (09:54)
[2019-08-09] MEDS: IBUPROFEN 400 MG TABLET (FP) PO PRN (17:46)
[2019-08-09] MEDS: THIAMINE HCL 100 MG TABLET (FP) PO SCH (21:17)
[2019-08-09] MEDS: ALBUTEROL SO4 8 GM HFA INHALER IH PRN (21:18)
[2019-08-10] MEDS ORDERED: METHADONE HCL 40 MG DISPERSABLE TABLET ONE (04:19)
[2019-08-10] MEDS ORDERED: METHADONE HCL 10 MG TABLET ONE (04:19)
[2019-08-10] MEDS: METHADONE 40 MG, METHADONE 30 MG PO SCH (07:00)
[2019-08-10] MEDS: PRENATAL VITAMINS W/ FOLIC ACID TABLET (FP) PO SCH (09:56)
[2019-08-10] MEDS: NICOTINE 21 MG/24 HOURS TOPICAL PATCH TD SCH (09:56)
[2019-08-10] MEDS: THIAMINE HCL 100 MG TABLET (FP) PO SCH (21:11)
[2019-08-11] MEDS ORDERED: METHADONE HCL 10 MG TABLET ONE (07:04)
[2019-08-11] MEDS ORDERED: METHADONE HCL 40 MG DISPERSABLE TABLET ONE (07:05)
[2019-08-11] MEDS: METHADONE 40 MG, METHADONE 30 MG PO SCH (07:06)
[2019-08-11] MEDS: ALBUTEROL SO4 8 GM HFA INHALER IH PRN ×2 (10:44→17:46)
[2019-08-11] MEDS: NICOTINE 21 MG/24 HOURS TOPICAL PATCH TD SCH (10:45)
[2019-08-11] MEDS: PRENATAL VITAMINS W/ FOLIC ACID TABLET (FP) PO SCH (10:45)
[2019-08-11] MEDS: THIAMINE HCL 100 MG TABLET (FP) PO SCH (21:22)
[2019-08-12] MEDS ORDERED: METHADONE HCL 10 MG TABLET ONE (05:29)
[2019-08-12] MEDS ORDERED: METHADONE HCL 40 MG DISPERSABLE TABLET ONE (05:30)
[2019-08-12 06:46] VITALS: BP 116/68; PULSE 67; TEMP 98.8
[2019-08-12] MEDS: METHADONE 40 MG, METHADONE 30 MG PO SCH (07:17)
[2019-08-12] MEDS: NICOTINE 21 MG/24 HOURS TOPICAL PATCH TD SCH (10:14)
[2019-08-12] MEDS: PRENATAL VITAMINS W/ FOLIC ACID TABLET (FP) PO SCH (10:15)
--- NOTE | 2019-08-12 10:43 | DS ---
[facility] Rehab Discharge Summary - [facility] Rehab Discharge Summary Admission Date: 08/01/19 Discharge Date: 08/12/19 - History Present History: Alcohol dependence, Cocaine dependence, MMTP Additional Comments: Pt is a 49 y/o male with a hx of RASHAD admitted to rehab and requesting early discharge today for personal reasons to follow up with his primary care doctor at [place], [place]. Pertinent Past History: Asthma HIV+ - Discharge Physical Exam Vital Signs: Vital Signs Temperature 98.8 F 08/12/19 06:45 Pulse Rate 67 08/12/19 06:45 Respiratory Rate 18 08/12/19 06:45 Blood Pressure 116/68 08/12/19 06:45 O2 Sat by Pulse Oximetry (%) Alert o x 3 nad oob ambulating with steady gait Heent:normocephalic,perrla,eomi,oropharynx wnl cardiac:s1 s2,rrr lungs:cta,jamar. abdomen:+bs,flat,soft,nt extremities/skin: no edema,full ROM/weight bearing;skin intact. Pertinent Admission Physical Exam Findings: unremarkable - Treatment Discharge Condition: Discharge condition good Hospital Course: safety maintained CD aftercare referral accepted - Medication Discharge Medications: Ambulatory Orders Albuterol 0.083% Nebulizer Heather [Ventolin 0.083%] 1 neb NEB QID PRN 08/04/19 Albuterol Sulfate Inhaler - [Ventolin Hfa Inhaler -] 2 inh PO Q4H PRN 08/04/19 - Medication-Assisted Treatment (MAT) Medication-Assisted Treatment (MAT): No - Discharge Instructions Diet, activity, other medical instructions: Diet:regular Activity: oob ad mami Other medical instructions:Follow up with primary care/Infectious Disease Clinic /CD aftercare with [facility] within 1 week after discharge. - Diagnosis (1) Alcohol dependence Status: Chronic Qualifiers: Substance use status: uncomplicated Qualified Code(s): F10.20 - Alcohol dependence, uncomplicated (2) History of HIV infection Status: Chronic (3) Opioid dependence on agonist therapy Status: Chronic (4) Opioid use disorder Status: Chronic (5) Track montez due to intravenous drug abuse Status: Chronic - Follow-up Referral Minutes to complete discharge: 20 - AMA Did Patient Leave Against Medical Advice: No
== END 2019-08-12 11:45 | disposition home or self-care (01) | DRG 772 ==
LOC: YASAS 13:06 → Y5N 13:08
PROVIDERS: ADMIT Neuromusculoskeletal Medicine & OMM; ATTEND Neuromusculoskeletal Medicine & OMM
PROC: HZ42ZZZ Group Counseling for Substance Abuse Treatment, Cognitive-Behavioral (ICD-10-PCS; principal; 2019-08-01)
DX: F10.20 Alcohol dependence, uncomplicated (principal); F11.20 Opioid dependence, uncomplicated; F14.20 Cocaine dependence, uncomplicated; Z21 Asymptomatic human immunodeficiency virus [HIV] infection status; J45.909 Unspecified asthma, uncomplicated; Z91.14 Patient's other noncompliance with medication regimen; Z88.2 Allergy status to sulfonamides; Z88.8 Allergy status to other drugs, medicaments and biological substances

== ENCOUNTER 2020-04-02 14:41 | Inpatient (IN) | payer OTHER ==
--- NOTE | 2020-04-02 15:11 | BHS.RME ---
Substance Use & Tx History - Substance Use History Alcohol Substance amount: one pint shaquille Frequency of use: Daily Substance route: Oral Date of Last Use: 04/01/20 Heroin Substance amount: 2.5 bundles Frequency of use: Daily Substance route: Injection (ex: intravenous or skin popping) Date of Last Use: 04/01/20 Cocaine- Powder Substance amount: $200 Frequency of use: Daily Substance route: Injection (ex: intravenous or skin popping) Date of Last Use: 04/01/20 Klonopin Substance amount: 2-3 tabs, 2 mg each Frequency of use: Daily Substance route: Oral Date of Last Use: 04/02/20 Nicotine Substance amount: 1-2 ppd Frequency of use: Daily Substance route: Smoking Date of Last Use: 04/02/20 - Last Treatment Date of last treatment: Jul to Aug 2019 [facility] Treatment type: Substance Use Disorder (RASHAD) Physical/Psych/Mental Status - Behavior General Behavior: Decreased activity Eye Contact: Normal - Cooperativeness Cooperativeness: Cooperative - Thinking Thought Processes: Tight Thought content: Future oriented - Physical Health Problems Is patient presently having any pain?: Yes (low back for 3 weeks) Does patient presently have any injuries (include location): No Does patient currently have a fever: No COWS - Scale Resting Pulse: 1= IA 81-100 Sweatin= Chills/Flushing Restless Observation: 0= Sits Still Pupil Size: 0= Normal to Room Light Bone or Joint Aches: 1= Mild Discomfort Runny Nose/ Eye Tearin= Nasal Congestion GI Upset > 30mins: 1= Stomach Cramp Tremor Observation: 0= None Yawning Observation: 0= None Anxiety or Irritability: 0= None Goose Flesh Skin: 0=Smooth Skin COWS Score: 5 CIWA Nausea/Vomitin Muscle Tremors: None Anxiety: 1-Mildly Anxious Agitation: 0-Normal Activity Paroxysmal Sweats: 2 Orientation: 3-Disoriented Date>2 days Tacttile Disturbances: 0-None Auditory Disturbances: 0-None Visual Disturbances: 2-Mild Sensitivity Headache: 1-Very Mild CIWA-Ar Total Score: 12
--- NOTE | 2020-04-02 19:08 | HP ---
"COWS - Scale Resting Pulse: 1= CA 81-100 Sweatin= Chills/Flushing Restless Observation: 0= Sits Still Pupil Size: 0= Normal to Room Light Bone or Joint Aches: 1= Mild Discomfort Runny Nose/ Eye Tearin= Nasal Congestion GI Upset > 30mins: 1= Stomach Cramp Tremor Observation: 0= None Yawning Observation: 0= None Anxiety or Irritability: 0= None Goose Flesh Skin: 0=Smooth Skin COWS Score: 5 CIWA Score Nausea/Vomitin-No Nausea/No Vomiting Muscle Tremors: None Anxiety: 1-Mildly Anxious Agitation: 4-Moderately Restless Paroxysmal Sweats: 2 Orientation: 3-Disoriented Date>2 days Tacttile Disturbances: 0-None Auditory Disturbances: 0-None Visual Disturbances: 2-Mild Sensitivity Headache: 0-None Present CIWA-Ar Total Score: 12 - Admission Criteria OASAS Guidelines: Admission for Medically Managed Detox: Requires at least one of the followin. CIWA greater than 12 2. Seizures within the past 24 hours 3. Delirium tremens within the past 24 hours 4. Hallucinations within the past 24 hours 5. Acute intervention needed for co occurring medical disorder 6. Acute intervention needed for co occurring psychiatric disorder 7. Severe withdrawal that cannot be handled at a lower level of care (continued vomiting, continued diarrhea, abnormal vital signs) requiring intravenous medication and/or fluids 8. Patient presents the following: CIWA greater than 12, Acute intervention needed for co-occurring med or psych disorder (HIV+) Admission Criteria Met: Admission criteria met Admitting History and Physical - Smoking History Smoking history: Current every day smoker Have you smoked in the past 12 months: Yes Aproximately how many cigarettes per day: 40 - Alcohol/Substance Use Hx Alcohol Use: Yes Admission ROS S - HPI Chief Complaint: States here cause I need detox to change my life. I had a overdose 3 days ago. Allergies/Adverse Reactions: Allergies Allergy/AdvReac Type Severity Reaction Status Date / Time sulfamethoxazole Allergy Mild Hives Verified 08/01/19 17:01 [From Bactrim] zidovudine Allergy Mild Hives Verified 08/01/19 17:01 diazepam [From Valium] Allergy Verified 08/01/19 17:01 efavirenz [From Atripla] Allergy Hives Verified 08/01/19 17:01 emtricitabine [From Atripla] Allergy Hives Verified 08/01/19 17:01 tenofovir [From Atripla] Allergy Hives Verified 08/01/19 17:01 History of Present Illness: 50 yo presents w/ alcohol withdrawal symptoms seeking detox. Utox: + HEMA/FEN/MOP/MTD/BZO WALE: 0.0 Hx: multiple OD 's. States last overdose 3 days ago. Denies seizures or blackouts. Alcohol use began at age 12. Drinks 3-4 pints/day. Last drink this am. Heroin use began at age 14. Uses approx 10-20 bags IV daily. Currently on Jim Mancera MMTP. Methadone dose is 160 mg PO Daily. LDM today. Has a Narcan kit @ home. Cocaine use began at age 14. Currently injects $200/day Nicotine use began at age 11. Smokes 10-15 cig/day. Benzo use since age 11. Restarted use [address] Xanax or Klonopin takes 3-4 1 mg pills 6 days/week. PMHx: HIV +; States not currently taking HIV meds MHHx: Denies depression. Denies thoughts of harming self or others. SHx: Domiciled. Unemployed. Denies legal problems. Search Terms: Last Arthur, 1970 Search Date: 04/02/2020 19:06:57 PM The Drug Utilization Report below displays all of the controlled substance prescriptions, if any, that your patient has filled in the last twelve months. The information displayed on this report is compiled from pharmacy submissions to the Department, and accurately reflects the information as submitted by the pharmacies. This report was requested by: Bethany Catherine | Reference #: [id number] There are no results for the search terms that you entered. Exam Limitations: No Limitations - Ebola screening Have you traveled outside of the country in the last 21 days: No (Denies COVID exposure) Have you had contact with anyone from an Ebola affected area: No Have you been sick,other than usual withdrawal symptoms: No Do you have a fever: No - Review of Systems Constitutional: Chills, Diaphoresis, Changes in sleep (Difficulty falling asleep) EENT: reports: Blurred Vision Respiratory: reports: SOB with Exertion Cardiac: reports: No Symptoms Reported GI: reports: No Symptoms Reported : reports: No Symptoms Reported Musculoskeletal: reports: No Symptoms Reported Integumentary: reports: No Symptoms Reported Neuro: reports: Tremors Endocrine: reports: No Symptoms Reported Hematology: reports: Other (HIV+) Psychiatric: reports: Judgement Intact, Agitated, Anxious Patient History - Patient Medical History Hx Asthma: No Hx Chronic Obstructive Pulmonary Disease (COPD): No Hx Cardiac Disorders: No Hx Hypertension: No Hx Seizures: No Hx Diabetes: No Hx Gastrointestinal Disorders: No Hx Genitourinary Disorders: No Hx Sexually Transmitted Disorders: No Hx Renal Disease (ESRD): No Hx Depression: Yes Hx Suicide Attempt: No Hx Schizophrenia: No - Patient Surgical History Past Surgical History: No Hx Neurologic Surgery: No Hx Cataract Extraction: No Hx Cardiac Surgery: No Hx Lung Surgery: No Hx Breast Surgery: No Hx Breast Biopsy: No Hx Abdominal Surgery: No Hx Appendectomy: No Hx Cholecystectomy: No Hx Genitourinary Surgery: No Hx Section: No Hx Orthopedic Surgery: No Anesthesia Reaction: No - PPD History Previous Implant?: Yes Documented Results: Negative w/proof Implanted On Prior [facility] Admission?: Yes Date: 08/01/19 PPD to be Administered?: No - Smoking Cessation Smoking history: Current every day smoker Have you smoked in the past 12 months: Yes Aproximately how many cigarettes per day: 15 Hx Chewing Tobacco Use: No Initiated information on smoking cessation: Yes 'Breaking Loose' booklet given: 04/02/20 - Substance & Tx. History Hx Alcohol Use: Yes Hx Substance Use: Yes Substance Use Type: Alcohol, Cocaine, Heroin, Opiates, Tranquilizers (BZO) Hx Substance Use Treatment: Yes (detox, rehab, MMTP) - Substances abused Alcohol Substance route: Oral Frequency: Daily Amount used: 3-4 pints Age of first use: 13 Date of last use: 04/02/20 (8 am) Alprazolam (Xanax) Other (specify): and Klonopin Substance route: Oral Frequency: 3-6 times per week Age of first use: 4 Date of last use: 04/02/20 Cocaine Substance route: Injection Frequency: Daily Amount used: $200 Age of first use: 12 Date of last use: 04/02/20 Heroin Other (specify): and Fentanyl Substance route: Injection Frequency: Daily Amount used: 10-20 bags Age of first use: 14 Date of last use: 04/02/20 Admission Physical Exam [facility] - Physical General Appearance: Yes: Nourished, Mild Distress, Tremorous, Sweating (Increased facial moisture), Anxious HEENTM: Yes: EOMI, Hearing grossly Normal, Normocephalic, Normal Voice, JENNIFER (Pupils = 2 mm), Pharynx Normal Respiratory: Yes: Lungs Clear, No Respiratory Distress, Wheezing (Inspi wheeze w/o c/o SOB. Pulse ox = 98%) Neck: Yes: No masses,lesions,Nodules, Supple Breast: Yes: Breast Exam Deferred Cardiology: Yes: Regular Rhythm, S1, S2, Bradycardia (HR: 58) Abdominal: Yes: Non Tender, Flat, Soft, Increased Bowel Sounds Genitourinary: Yes: Within Normal Limits Back: Yes: Normal Inspection Musculoskeletal: Yes: full range of Motion, Gait Steady Extremities: Yes: Normal Capillary Refill, Tremors (Gross tremors at rest) Neurological: Yes: scale and skip car operator II-XII NML intact, Alert, Motor Strength 5/5, Normal Response Integumentary: Yes: Normal Color, Warm, Track Mcconnell (Old and new track mcconnell) Lymphatic: Yes: Within Normal Limits - Diagnostic (1) Anxiolytic dependence Current Visit: Yes Status: Acute (2) Alcohol dependence with withdrawal, uncomplicated Current Visit: Yes Status: Acute (3) Wheeze Current Visit: Yes Status: Chronic Comment: Expiratory w/o dyspnea (4) History of HIV infection Current Visit: Yes Status: Chronic Comment: Not on meds (5) Opioid dependence on agonist therapy Current Visit: Yes Status: Chronic Comment: With continued illicit opioid use (6) Track mcconnell due to intravenous drug abuse Current Visit: Yes Status: Chronic Cleared for Admission [facility] - Detox or Rehab [facility] Level of Care: Medically Managed Detox Regimen/Protocol: Librium Claeared for Rehab Admission: No Breathalyzer - Breathalyzer Breathalyzer: 0 Urine Drug Screen - Test Device Lot number: [id number] Expiration date: 04/08/21 - Control Is test valid?: Yes - Results Drug screen NEGATIVE: No Urine drug screen results: HEMA-Cocaine, FEN-Fentanyl, MOP-Opiates, MTD-Methadone Inpatient Rehab Admission - Rehab Decision to Admit Inpatient rehab admission?: No"
[2020-04-02 20:26] VITALS: BMI 22.8
[2020-04-02] MEDS ORDERED: BISMUTH SUBSALICYLATE 524 MG/30 ML UD PO PRN (20:51)
[2020-04-02] MEDS ORDERED: MAGNESIUM HYDROX 2400MG/30ML ORAL SUSPENSION 30 ML CUP PO PRN (20:51)
[2020-04-02] MEDS ORDERED: NICOTINE POLACRILEX 2 MG GUM BUC PRN (20:51)
[2020-04-02] MEDS ORDERED: chlordiazePOXIDE HCL 25 MG CAPSULE PO PRN (20:51)
[2020-04-02] MEDS ORDERED: METHOCARBAMOL 500 MG TABLET PO PRN (20:51)
[2020-04-02] MEDS ORDERED: ONDANSETRON *ODT* 4 MG TABLET SL ONE (20:51)
[2020-04-02] MEDS ORDERED: IBUPROFEN 400 MG TABLET (FP) PO PRN (20:51)
[2020-04-02] MEDS ORDERED: MAG HYDROX/AL HYDROX/SIMETH 30 ML UNIT-DOSE CUP PO PRN (20:51)
[2020-04-02] MEDS ORDERED: MENTHOL/PHENOL 1 EACH UD MM PRN (20:51)
[2020-04-02] MEDS ORDERED: ACETAMINOPHEN 325 MG TABLET (FP) PO PRN ×2 (20:51)
[2020-04-02] MEDS ORDERED: MAGNESIUM CITRATE 300 ML BOTTLE PO PRN (20:51)
[2020-04-02] MEDS ORDERED: ALBUTEROL SO4 HFA INHALER IH PRN (20:56)
[2020-04-02] MEDS: THIAMINE HCL 100 MG TABLET (FP) PO SCH (22:32)
[2020-04-02] MEDS: MELATONIN 5 MG TABLETS PO SCH (22:32)
[2020-04-02] MEDS: chlordiazePOXIDE HCL 25 MG CAPSULE PO SCH (22:32)
[2020-04-03] MEDS: chlordiazePOXIDE HCL 25 MG CAPSULE PO SCH ×4 (05:57→22:17)
[2020-04-03 09:38] LABS: HEMATOCRIT 39.7 % (35.4-49); HEMOGLOBIN 12.9 GM/dL (11.7-16.9); MCH 25.4 pg (25.7-33.7); MCHC 32.6 g/dl (32.0-35.9); MEAN CELL VOLUME 77.9 fl (80-96); MEAN PLT VOLUME 7.8 fl (7.5-11.1); PLATELET COUNT 186 K/MM3 (134-434); RDW 14.4 % (11.9-15.9); WHITE BLOOD COUNT 3.7 K/mm3 (4.0-10.0)
[2020-04-03 10:04] LABS: ALBUMIN 2.9 g/dl (3.4-5.0); BILIRUBIN,TOTAL 0.2 mg/dL (0.2-1); CALCIUM 8.2 mg/dL (8.5-10.1); CREATININE 0.9 mg/dL (0.55-1.3); POTASSIUM 3.9 mmol/L (3.5-5.1); TOT PROT 6.9 g/dl (6.4-8.2)
[2020-04-03] MEDS: NICOTINE 21 MG/24 HOURS TOPICAL PATCH TD SCH (10:06)
[2020-04-03] MEDS: PRENATAL VITAMINS W/ FOLIC ACID TABLET (FP) PO SCH (10:09)
[2020-04-03] MEDS: METHADONE HCL 40 MG DISPERSABLE TABLET PO SCH (11:16)
--- NOTE | 2020-04-03 13:21 | PN ---
[facility] CIWA - CIWA Score Nausea/Vomitin-No Nausea/No Vomiting Muscle Tremors: 3 Anxiety: 2 Agitation: 2 Paroxysmal Sweats: 2 Orientation: 0-Oriented Tacttile Disturbances: 0-None Auditory Disturbances: 1-Very Mild Visual Disturbances: 2-Mild Sensitivity Headache: 0-None Present CIWA-Ar Total Score: 12 S Progress Note (SOAP) Subjective: Complaints of body aches, anxiety, sweats,tremors, and agitation. Objective: 04/03/20 13:19 Vital Signs 04/03/20 04/03/20 05:24 08:35 Temperature 98 F 97.3 F L Pulse Rate 54 L 57 L Respiratory 16 16 Rate Blood Pressure 120/68 109/65 O2 Sat by Pulse 97 97 Oximetry (%) Laboratory Last Values WBC 3.7 K/mm3 (4.0-10.0) L 04/03/20 07:10 RBC 5.10 M/mm3 (4.00-5.60) 04/03/20 07:10 Hgb 12.9 GM/dL (11.7-16.9) 04/03/20 07:10 Hct 39.7 % (35.4-49) D 04/03/20 07:10 MCV 77.9 fl (80-96) L 04/03/20 07:10 MCH 25.4 pg (25.7-33.7) L 04/03/20 07:10 MCHC 32.6 g/dl (32.0-35.9) 04/03/20 07:10 RDW 14.4 % (11.9-15.9) 04/03/20 07:10 Plt Count 186 K/MM3 (134-434) D 04/03/20 07:10 MPV 7.8 fl (7.5-11.1) 04/03/20 07:10 Sodium 141 mmol/L (136-145) 04/03/20 07:10 Potassium 3.9 mmol/L (3.5-5.1) 04/03/20 07:10 Chloride 106 mmol/L (98-107) 04/03/20 07:10 Carbon Dioxide 28 mmol/L (21-32) 04/03/20 07:10 Anion Gap 7 MMOL/L (8-16) L 04/03/20 07:10 BUN 15.0 mg/dL (7-18) 04/03/20 07:10 Creatinine 0.9 mg/dL (0.55-1.3) 04/03/20 07:10 Est GFR (CKD-EPI)AfAm 115.02 04/03/20 07:10 Est GFR (CKD-EPI)NonAf 99.24 04/03/20 07:10 Random Glucose 98 mg/dL (74-106) 04/03/20 07:10 Calcium 8.2 mg/dL (8.5-10.1) L 04/03/20 07:10 Total Bilirubin 0.2 mg/dL (0.2-1) 04/03/20 07:10 AST 48 U/L (15-37) H 04/03/20 07:10 ALT 49 U/L (13-61) 04/03/20 07:10 Alkaline Phosphatase 82 U/L (45-117) 04/03/20 07:10 Total Protein 6.9 g/dl (6.4-8.2) 04/03/20 07:10 Albumin 2.9 g/dl (3.4-5.0) L 04/03/20 07:10 Syphilis Serology Non-reactive (NONREACTIVE) 04/03/20 07:10 Labs noted. Assessment: 04/03/20 13:20 Alert and oriented x3, in no acute respiratory distress. Full ROM, ambulatory without assistance. Withdrawal symptoms. Plan: Continue detox protocol and Methadone maintenance dosage.
[2020-04-03] MEDS: MELATONIN 5 MG TABLETS PO SCH (22:17)
[2020-04-03] MEDS: THIAMINE HCL 100 MG TABLET (FP) PO SCH (22:17)
[2020-04-04] MEDS: METHADONE HCL 40 MG DISPERSABLE TABLET PO SCH (06:02)
[2020-04-04] MEDS: chlordiazePOXIDE HCL 25 MG CAPSULE PO SCH ×4 (06:02→22:10)
[2020-04-04] MEDS: NICOTINE 21 MG/24 HOURS TOPICAL PATCH TD SCH (10:20)
[2020-04-04] MEDS: PRENATAL VITAMINS W/ FOLIC ACID TABLET (FP) PO SCH (10:23)
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
[2020-04-04] MEDS: THIAMINE HCL 100 MG TABLET (FP) PO SCH (22:11)
[2020-04-04] MEDS: MELATONIN 5 MG TABLETS PO SCH (22:11)
[2020-04-04] MEDS: CALCIUM CARBONATE 650 MG TABLET PO SCH (22:11)
[2020-04-05] MEDS ORDERED: chlordiazePOXIDE HCL 10 MG CAPSULE PO PRN
[2020-04-05] MEDS: METHADONE HCL 40 MG DISPERSABLE TABLET PO SCH (06:01)
[2020-04-05] MEDS: chlordiazePOXIDE HCL 10 MG CAPSULE PO SCH ×4 (06:02→22:01)
[2020-04-05] MEDS: CALCIUM CARBONATE 650 MG TABLET PO SCH ×2 (11:11→22:01)
[2020-04-05] MEDS: PRENATAL VITAMINS W/ FOLIC ACID TABLET (FP) PO SCH (11:11)
[2020-04-05] MEDS: NICOTINE 21 MG/24 HOURS TOPICAL PATCH TD SCH (11:11)
[2020-04-05] MEDS ORDERED: IBUPROFEN 600 MG TABLET (FP) PO PRN (12:37)
--- NOTE | 2020-04-05 13:05 | PN ---
S CIWA - CIWA Score Nausea/Vomitin-No Nausea/No Vomiting Muscle Tremors: 2 Anxiety: 1-Mildly Anxious Agitation: 2 Paroxysmal Sweats: 1-Minimal Palms Moist Orientation: 0-Oriented Tacttile Disturbances: 0-None Auditory Disturbances: 0-None Visual Disturbances: 0-None Headache: 0-None Present CIWA-Ar Total Score: 6 BHS Progress Note (SOAP) Subjective: sweats right upper back pain interrupted sleep restless I need my HIV medication (triumeq) Objective: 04/05/20 13:07 Vital Signs Temperature 97.5 F L 04/05/20 08:30 Pulse Rate 57 L 04/05/20 08:30 Respiratory Rate 16 04/05/20 08:30 Blood Pressure 106/62 04/05/20 08:30 O2 Sat by Pulse Oximetry (%) 96 04/05/20 08:30 Laboratory Tests 04/02/20 04/03/20 04/03/20 21:00 07:10 07:10 WBC 3.7 L RBC 5.10 Hgb 12.9 Hct 39.7 D MCV 77.9 L MCH 25.4 L MCHC 32.6 RDW 14.4 Plt Count 186 D MPV 7.8 Sodium Potassium Chloride Carbon Dioxide Anion Gap BUN Creatinine Est GFR (CKD-EPI)AfAm Est GFR (CKD-EPI)NonAf Random Glucose Calcium Total Bilirubin AST ALT Alkaline Phosphatase Total Protein Albumin Syphilis Serology Non-reactive COVID-19 (KIM) Not detected 04/03/20 07:10 WBC RBC Hgb Hct MCV MCH MCHC RDW Plt Count MPV Sodium 141 Potassium 3.9 Chloride 106 Carbon Dioxide 28 Anion Gap 7 L BUN 15.0 Creatinine 0.9 Est GFR (CKD-EPI)AfAm 115.02 Est GFR (CKD-EPI)NonAf 99.24 Random Glucose 98 Calcium 8.2 L Total Bilirubin 0.2 AST 48 H ALT 49 Alkaline Phosphatase 82 Total Protein 6.9 Albumin 2.9 L Syphilis Serology COVID-19 (KIM) aaox3 ambulating no acute distress Assessment: 04/05/20 13:21 withdrawals Plan: continue detox increase fluids lidocaine patch motrin 600mg prn tiumeq ordered. spoke with pharmacist from [facility] pharmacy and it was confirmed that pt is currently on triumeq as ordered.
[2020-04-05] MEDS: LIDOCAINE 5% TOPICAL PATCH TP SCH (14:50)
[2020-04-05] MEDS: ABACAVIR/DOLUTEGRAVIR/LAMIVUDI (TRIUMEQ) TABLET -NF PO SCH (14:50)
[2020-04-05] MEDS: THIAMINE HCL 100 MG TABLET (FP) PO SCH (22:01)
[2020-04-05] MEDS: MELATONIN 5 MG TABLETS PO SCH (22:01)
[2020-04-05] MEDS: LIDOCAINE PATCH REMOVAL MC SCH (22:02)
[2020-04-06] MEDS: METHADONE HCL 40 MG DISPERSABLE TABLET PO SCH (06:09)
[2020-04-06] MEDS: chlordiazePOXIDE HCL 10 MG CAPSULE PO SCH ×2 (06:09→17:36)
[2020-04-06] MEDS: ABACAVIR/DOLUTEGRAVIR/LAMIVUDI (TRIUMEQ) TABLET -NF PO SCH (08:00)
--- NOTE | 2020-04-06 10:10 | PN ---
S CIWA - CIWA Score Nausea/Vomitin-No Nausea/No Vomiting Muscle Tremors: 2 Anxiety: 1-Mildly Anxious Agitation: 1-Slight > Activity Paroxysmal Sweats: No Perspiration Orientation: 0-Oriented Tacttile Disturbances: 0-None Auditory Disturbances: 0-None Visual Disturbances: 0-None Headache: 0-None Present CIWA-Ar Total Score: 4 BHS Progress Note (SOAP) Subjective: feeling better little anxiety restless Objective: 04/06/20 10:09 Vital Signs Temperature 97.7 F 04/06/20 05:47 Pulse Rate 54 L 04/06/20 05:47 Respiratory Rate 18 04/06/20 05:47 Blood Pressure 108/66 04/06/20 05:47 O2 Sat by Pulse Oximetry (%) 98 04/06/20 05:47 aaox3 ambulating no acute distress Assessment: 04/06/20 10:10 mild withdrawals Plan: continue detox d/c in am
[2020-04-06] MEDS: CALCIUM CARBONATE 650 MG TABLET PO SCH ×2 (10:13→22:33)
[2020-04-06] MEDS: LIDOCAINE 5% TOPICAL PATCH TP SCH (10:14)
[2020-04-06] MEDS: NICOTINE 21 MG/24 HOURS TOPICAL PATCH TD SCH (10:15)
[2020-04-06] MEDS: PRENATAL VITAMINS W/ FOLIC ACID TABLET (FP) PO SCH (10:15)
[2020-04-06] MEDS: MELATONIN 5 MG TABLETS PO SCH (22:30)
[2020-04-06] MEDS: THIAMINE HCL 100 MG TABLET (FP) PO SCH (22:33)
[2020-04-06] MEDS: LIDOCAINE PATCH REMOVAL MC SCH (22:56)
[2020-04-07] MEDS ORDERED: chlordiazePOXIDE HCL 10 MG CAPSULE PO ONE (05:00)
[2020-04-07 06:49] VITALS: BP 90/47; PULSE 54; TEMP 96.9
--- NOTE | 2020-04-07 08:31 | DS ---
[facility] Detox Discharge Summary Admission Date: 04/02/20 Discharge Date: 04/07/20 - History Present History: Alcohol Dependence, MMTP - Physical Exam Results Vital Signs: Vital Signs Temperature 96.9 F L 04/07/20 06:30 Pulse Rate 54 L 04/07/20 06:30 Respiratory Rate 18 04/07/20 06:30 Blood Pressure 90/47 L 04/07/20 06:30 O2 Sat by Pulse Oximetry (%) 97 04/07/20 06:30 Pertinent Admission Physical Exam Findings: Vital Signs Temperature 96.9 F L 04/07/20 06:30 Pulse Rate 54 L 04/07/20 06:30 Respiratory Rate 18 04/07/20 06:30 Blood Pressure 90/47 L 04/07/20 06:30 O2 Sat by Pulse Oximetry (%) 97 04/07/20 06:30 Laboratory Tests 04/02/20 04/03/20 04/03/20 21:00 07:10 07:10 WBC 3.7 L RBC 5.10 Hgb 12.9 Hct 39.7 D MCV 77.9 L MCH 25.4 L MCHC 32.6 RDW 14.4 Plt Count 186 D MPV 7.8 Sodium Potassium Chloride Carbon Dioxide Anion Gap BUN Creatinine Est GFR (CKD-EPI)AfAm Est GFR (CKD-EPI)NonAf Random Glucose Calcium Total Bilirubin AST ALT Alkaline Phosphatase Total Protein Albumin Syphilis Serology Non-reactive COVID-19 (KIM) Not detected 04/03/20 07:10 WBC RBC Hgb Hct MCV MCH MCHC RDW Plt Count MPV Sodium 141 Potassium 3.9 Chloride 106 Carbon Dioxide 28 Anion Gap 7 L BUN 15.0 Creatinine 0.9 Est GFR (CKD-EPI)AfAm 115.02 Est GFR (CKD-EPI)NonAf 99.24 Random Glucose 98 Calcium 8.2 L Total Bilirubin 0.2 AST 48 H ALT 49 Alkaline Phosphatase 82 Total Protein 6.9 Albumin 2.9 L Syphilis Serology COVID-19 (KIM) aaox3 ambulating no acute distress lungs CTA - Treatment Hospital Course: Detox Protocol Followed, Detoxed Safely, Responded well, Discharged Condition Good, Rehab Referral Accepted - Medication Discharge Medications: Ambulatory Orders Albuterol Sulfate Inhaler - [Ventolin Hfa Inhaler -] 2 inh PO Q4H PRN 08/04/19 - AMA Did Patient Leave Against Medical Advice: Yes
[2020-04-07] MEDS: METHADONE HCL 40 MG DISPERSABLE TABLET PO SCH (08:36)
[2020-04-07] MEDS ORDERED: ABACAVIR/DOLUTEGRAVIR/LAMIVUDI (TRIUMEQ) TABLET -NF PO SCH (09:00)
== END 2020-04-07 08:50 | disposition home or self-care (01) | DRG 773 ==
LOC: YASAS 14:41 → Y6N 20:23
PROVIDERS: ADMIT Allergy & Immunology; ATTEND Allergy & Immunology
PROC: HZ2ZZZZ Detoxification Services for Substance Abuse Treatment (ICD-10-PCS; principal; 2020-04-02)
DX: F10.230 Alcohol dependence with withdrawal, uncomplicated (principal); F11.20 Opioid dependence, uncomplicated; F14.20 Cocaine dependence, uncomplicated; F13.20 Sedative, hypnotic or anxiolytic dependence, uncomplicated; Z21 Asymptomatic human immunodeficiency virus [HIV] infection status; E83.51 Hypocalcemia; E88.09 Other disorders of plasma-protein metabolism, not elsewhere classified; R74.0 Nonspecific elevation of levels of transaminase and lactic acid dehydrogenase [LDH]; R06.2 Wheezing; M54.89 Other dorsalgia; Z62.810 Personal history of physical and sexual abuse in childhood; Z88.2 Allergy status to sulfonamides; Z88.8 Allergy status to other drugs, medicaments and biological substances; Z56.0 Unemployment, unspecified
CPT/HCPCS: 36415; 80053; 85027; 86780; U0003